=== PATIENT | female | born 1975 | race Caucasian/White ===

== ENCOUNTER 2018-07-19 20:22 | Emergency (ER) | payer OTHER ==
[~2018-07-19] VITALS: Ht 160 cm; Wt 145.2 kg
[~2018-07-19 20:22] MED LIST: ALBU90OI6 INH; CYCL10 PO; NAPR500 PO; RXCYCL10 PO
[2018-07-19] MEDS ORDERED: (None)20 M1 PO (21:29)
[2018-07-19] MEDS ORDERED: Cheratussin AC118 ML PO (21:29)
== END 2018-07-19 21:49 | disposition home or self-care (01) ==
LOC: ER 20:22
DX: R05 Cough (principal); J45.909 Unspecified asthma, uncomplicated; G89.29 Other chronic pain; Z88.5 Allergy status to narcotic agent; Z90.49 Acquired absence of other specified parts of digestive tract
CPT/HCPCS: 94640; 99283-25